=== PATIENT | male | born 1985 | race African-American/Black ===

== ENCOUNTER 2017-09-08 13:29 | Emergency (ER) | payer OTHER | END 2017-09-08 16:48 | disposition home or self-care (01) | LOC: M ED 13:29 | DX: M25.561 Pain in right knee (principal); M25.361 Other instability, right knee; Z91.013 Allergy to seafood | CPT/HCPCS: 73564 ==

== ENCOUNTER 2017-11-17 18:00 | Emergency (ER) | payer OTHER | END 2017-11-17 20:39 | disposition home or self-care (01) | LOC: M ED 18:00 | DX: S83.91XA Sprain of unspecified site of right knee, initial encounter (principal); X58.XXXA Exposure to other specified factors, initial encounter; Y92.9 Unspecified place or not applicable; Y93.9 Activity, unspecified; Y99.9 Unspecified external cause status; Z91.013 Allergy to seafood | CPT/HCPCS: 73560 ==

== ENCOUNTER 2017-12-23 11:10 | Emergency (ER) | payer OTHER ==
[2017-12-23 12:15] LABS: HEMATOCRIT 41.4 % (42.0-52.0); HEMOGLOBIN 14.4 g/dl (13.5-17.5); MEAN CORPUSCULAR HEMOGLOBIN 28.8 pg (27.0-33.0); MEAN CORPUSCULAR HGB CONC 34.8 g/dl (32.0-36.5); MEAN CORPUSCULAR VOLUME 82.8 fl (80.0-96.0); PLATELET COUNT, AUTOMATED 248 10^3/uL (150-450); RED CELL DISTRIBUTION WIDTH 14.2 % (11.5-14.5); WHITE BLOOD COUNT 6.1 10^3/uL (4.0-10.0)
[2017-12-23 12:18] LABS: KETONE, URINE AUTO RFX NEGATIVE (NEGATIVE); LEUKOCYTE ESTERASE UR AUTO RFX NEGATIVE (NEGATIVE); MUCUS, URINE RFX SMALL (NEGATIVE); NITRITE, URINE AUTO RFX NEGATIVE (NEGATIVE); RBC, URINE AUTO RFX 10 /HPF (0-3); SPECIFIC GRAVITY UR AUTO RFX 1.019 (1.002-1.035); SQUAM EPITHELIAL CELL UR AURFX 0 /HPF (0-6); WBC, URINE AUTO RFX 2 /HPF (0-3)
[2017-12-23 12:39] LABS: ANION GAP 9 MEQ/L (8-16); BLOOD UREA NITROGEN 16 MG/DL (7-18); CALCIUM LEVEL 9.4 MG/DL (8.5-10.1); CARBON DIOXIDE LEVEL 27 MEQ/L (21-32); CHLORIDE LEVEL 103 MEQ/L (98-107); CREATININE FOR GFR 0.93 MG/DL (0.70-1.30); GLOMERULAR FILTRATION RATE > 60.0 (>60); GLUCOSE, FASTING 89 MG/DL (70-100); POTASSIUM SERUM 4.2 MEQ/L (3.5-5.1); SODIUM LEVEL 139 MEQ/L (136-145)
== END 2017-12-23 12:56 | disposition home or self-care (01) ==
LOC: M ED 11:10
DX: R10.9 Unspecified abdominal pain (principal); D16.8 Benign neoplasm of pelvic bones, sacrum and coccyx; Z91.013 Allergy to seafood
CPT/HCPCS: 74176